=== PATIENT | female | born 1995 ===

== ENCOUNTER → 2018-11-14 | Outpatient (CLI) | payer BC ==
[~2018-11-14] MED LIST: GADOBENATE 529MG/1ML 15ML VIAL IVP ONE; NS(*) 0.9% 50 ML BAG 50 ML ONE
--- NOTE | 2018-11-14 10:20 | RADIOLOGY IMAGING REPORT ---
FACILITY: [facility] - [place] PATIENT NAME: Connie Bartlett : 1995 MR: [id number] V: [id number] EXAM DATE: [id number] ORDERING PHYSICIAN: FRANCIA ENAMORADO TECHNOLOGIST: Location: [facility] [place] Patient: Connie Bartlett : 1995 Visit/Account:[id number] Date of Sevice: 11/14/2018 Study:MRI of the sella with and without gadolinium contrast Comparison study:None Contrast used:15 mL MultiHance gadolinium Technique: Multiplanar MRI sequences were obtained through the brain before and after the ministratio n of gadolinium contrast. The examination was tailored for the evaluation of the sella. The examination demonstrates no evidence of acute intracranial hemorrhage. There is no evidence of ex tra-axial collection or hydrocephalus. A diffusion-weighted sequence was performed and demonstrates no evidence of active ischemia. The pituitary gland is normal in appearance. The pituitary gland has a convex upper border. This can be seen in women of reproductive age. There is no evidence of abnormal signal within the pituitary gl and. There is no evidence of focal area of hypoenhancement within the pituitary gland. The suprasellar cistern is unremarkable. There is no evidence of abnormality of the cavernous sinuses . IMPRESSION:No significant abnormality identified. Specifically, there is no evidence of abnormality of the pituitary gland. Report Dictated By: Azeem Ordoñez at 11/14/2018 10:02 AM Report E-Signed By: Azeem Ordoñez at 11/14/2018 10:12 AM WSN:[id number]
== END ==
LOC: MRI 07:37
PROVIDERS: ATTEND Nurse Practitioner Family
DX: E22.1 Hyperprolactinemia (principal)
CPT/HCPCS: 70553; A9577; J7050